=== PATIENT | female | born 1960 | race Caucasian/White ===

== ENCOUNTER → 2020-07-25 17:09 | Outpatient (CLI) | payer BC, SELFPAY | PROVIDERS: Visit Provider Internal Medicine Gastroenterology | DX: Z01.812 Encounter for preprocedural laboratory examination (principal); Z20.822 Contact with and (suspected) exposure to COVID-19; Z13.810 Encounter for screening for upper gastrointestinal disorder | CPT/HCPCS: U0003 ==

== ENCOUNTER 2020-07-27 08:55 | Day surgery (SDC) | payer BC, SELFPAY ==
[2020-07-17 15:59] VITALS: BMI 31.9
[2020-07-27] VITALS (8 sets, daily range): BP systolic 99–132; BP diastolic 58–75; PULSE 72–84; RESP 18; TEMP 36.4–37.1; O2SAT 92–100
--- NOTE | 2020-07-27 09:49 | P.PN_ITS ---
[facility] Anesthesia Checklist - Structural Data Admitted From: Home Planned Operative Procedure/s: egd Consent for Planned Operative Procedure(s) Verified: Yes - Airway Assessment C-Spine Mobility Assessed: Yes TMJ Mobility Assessed: Yes Dentition: Good Dentition - Neurological Assessment Level of Consciousness: Awake, Alert, Appropriate - Anesthesia Plan Anesthesia Risk discussed: Yes Anesthesia Plan: Verified ASA Class: II Anesthesia Type: MAC [facility] History I have reviewed the patient's past medical history: Yes Medical History: Denies:: Cancer, Diabetes Mellitus Type 1, Diabetes Mellitus Type 2, Internal Pacemaker, MRSA, Seizures *Have you ever received a pneumonia vaccine?: No *Have you received a flu vaccine this season?: Yes Anesthesia experience/problems:: none Other Surgeries: No: Pacemaker Amputation: No Fractures: No - *Social History Smoking Status: Unknown if ever smoked Alcohol Intake: never Substance Use Type: denies use *Occupational Status:: employed Housing: house Household Members: spouse *Travel in the last 8 weeks: None Family Hx:: No significant family history
--- NOTE | 2020-07-27 10:12 | HMH.PROC ---
[facility] Procedure Note Procedure Note:: Upper Endoscopy Procedure Report: Esophagogastroduodenoscopy with cold biopsies Endoscopost: Titus Garner II, MD Referring Physician: Yoly Tong MD Date of Procedure: July 27, 2020 Equipment: Olympus GIF 190 standard upper endoscope Sedation: MAC sedation Indications: Mrs. Wang is a 60-year-old female who is here for diagnostic upper endoscopy secondary to dyspepsia. She does have some chronic epigastric abdominal discomfort. Over the last year, she has had more acute episodes of severe excruciating epigastric pain that may last for several hours. Her last couple of episodes were on Easter and then 4 to 5 days later. She does have bloating and some moderate belching. She reports no nausea or early satiety. She does get some heartburn and reflux and is on PPI therapy. The patient does report regular bowel movements but over the last year has had some mild change. She does go from loose to firm stools and does have excessive wiping. She reports no rectal bleeding. Her recent lab work showed hemoglobin 14.7 and hematocrit 45.1. She also had normal liver chemistries. Her ultrasound of the abdomen was normal. She did have a colonoscopy with [place] in April 2008 and had a single hyperplastic polyp removed. She also had evidence of diverticulosis. Procedure: Prior to the procedure, a history and physical exam was performed, and patient's medications and allergies were reviewed. The risks, benefits and alternatives of the sedation and procedure were discussed with the patient. All questions were answered and informed consent was obtained. The patient was brought to the procedure room. Patient identification and proposed procedure were verified by the physician and the nurse. The patient was placed in a left lateral decubitus position and the scope was passed under direct vision. Throughout the procedure, the patient's blood pressure, pulse, and oxygen saturations were monitored continuously. The upper GI endoscopy was accomplished without difficulty. The patient tolerated the procedure well. Findings: The scope was passed directly into the upper esophagus and advanced to the third portion of the duodenum. The post bulbar duodenum and duodenal bulb were normal with normal mucosa and conniventes. The scope was withdrawn through a normal duodenal bulb and pylorus into the stomach. There was moderate bile reflux with mild to moderate linear reactive gastropathy of the antrum and body of the stomach. The remainder of the fundus of the stomach was grossly normal. Upon retroflexion there was a small sliding 1 to 2 cm hiatal hernia. 2 biopsies were taken in the antrum and along the lesser curvature for histology to rule out gastritis and/or H pylori. The scope was then withdrawn into the esophagus. There was no evidence of reflux esophagitis or Zavala's. Biopsies were taken at the GE junction. There were some tertiary contractions and mild dysmotility. The remainder of the esophageal mucosa was normal. Impression: 1. Nonerosive GERD with mild esophageal dysmotility and small 1 to 2 cm hiatal hernia 2. Bile reflux with mild to moderate linear reactive gastropathy Plan: I will follow-up the biopsies. The patient does have acute on chronic functional dyspepsia. This is probably multifactorial but likely related to obstipation with colonic fermentation and high gas pressure gradients. I will discussed dietary measures, fiber bowel regimen and additional treatment options.
== END 2020-07-27 11:17 | disposition home or self-care (01) ==
LOC: OUTP 08:58
PROVIDERS: PCP Family Medicine Geriatric Medicine; Visit Provider Internal Medicine Gastroenterology
PROC: 0DJ08ZZ Inspection of Upper Intestinal Tract, Via Natural or Artificial Opening Endoscopic (ICD-10-PCS; CPT 43235; principal; 2020-07-27 10:00)
DX: K21.9 Gastro-esophageal reflux disease without esophagitis (principal); K22.4 Dyskinesia of esophagus; K31.9 Disease of stomach and duodenum, unspecified; K44.9 Diaphragmatic hernia without obstruction or gangrene; Z79.890 Hormone replacement therapy; Z79.899 Other long term (current) drug therapy
CPT/HCPCS: 43239